=== PATIENT | female | born 1985 | race Caucasian/White ===

== ENCOUNTER 2018-07-10 10:34 | Emergency (ER) | payer OTHER ==
[~2018-07-10] VITALS: Ht 248.9 cm; Wt 86.2 kg
[~2018-07-10 10:34] MED LIST: LOESTRIN 24 FE1 TAB
== END 2018-07-10 14:47 | disposition home or self-care (01) ==
LOC: ER 10:34
DX: N93.8 Other specified abnormal uterine and vaginal bleeding (principal)

== ENCOUNTER 2020-03-09 02:30 | Emergency (ER) | payer OTHER ==
[~2020-03-09] VITALS: Ht 157.5 cm; Wt 90.7 kg
== END 2020-03-09 08:38 | disposition home or self-care (01) ==
LOC: ER 02:30
DX: N93.8 Other specified abnormal uterine and vaginal bleeding (principal)